=== PATIENT | male | born 1930 | race Caucasian/White ===

== ENCOUNTER 2016-12-16 10:47 | Observation (INO) | payer OTHER ==
--- NOTE | ~2016-12-16 | HP ---
History And Physical [address] [place]. [address] NAME: DOUGIE CONWAY : 32 STATUS : ADM IN [facility]#: [id number] AGE: 86 ADM/REG DATE : 12/16/16 MR#: [id number] REPORT SERV DATE: 12/17/16 DICTATED BY: CLYDE CASTAÑEDA DATE: 12/17/16 REPORT STATUS : Draft TRANSCRIBED BY: MODL DATE: 12/17/16 DATE OF ADMISSION: 12/16/2016 CHIEF COMPLAINT: Hepatocellular carcinoma. HISTORY OF PRESENT ILLNESS: Mr. Conway is an 86-year-old white gentleman with past medical history of hepatocellular carcinoma, coronary artery disease, CHF, and chronic kidney disease, who was recently seen by Dr. Boyle for his hepatocellular carcinoma. There was signs of worsening disease and was scheduled for radiofrequency ablation and chemoembolization. He was admitted on 12/16/2016 for his procedures. The RFA was performed on the 12/16/2016 without complication. On the morning of the 12/17/2016, he was scheduled for the chemoembolization, but he ate breakfast delaying the procedure. He is currently waiting for his chemoembolization later today. He tolerated the RFA well. He has had some tenderness in the right upper quadrant, but this has been well controlled with his Dilaudid [employer]. He has also had some nausea without vomiting. He denies any fevers or bleeding. He has history of chronic kidney disease, but his urine output has been normal. He has heart disease including coronary artery disease and congestive heart failure, but denies shortness of breath or chest pain. His only other complaint at this time has been insomnia and wants something to help him sleep. PAST MEDICAL HISTORY: 1. Coronary artery disease. 2. Congestive heart failure. 3. Chronic kidney disease. 4. Hepatocellular carcinoma. 5. GERD with Rashid esophagus. 6. Peripheral vascular disease with AAA. 7. Atrial fibrillation. MEDICATIONS: 1. Entresto. 2. Iron. 3. Coreg. 4. Bumex. 5. Lipitor. 6. Carafate. 7. Protonix. 8. Zanaflex. 9. Aspirin. FAMILY HISTORY: Noted for diabetes and hypertension. SOCIAL HISTORY: He is . Denies smoking, alcohol, or illicit drugs. ALLERGIES: NO KNOWN DRUG ALLERGIES. History And Physical [address] [place]. [address] NAME: DOUGIE CONWAY : 32 STATUS : ADM IN [facility]#: [id number] AGE: 86 ADM/REG DATE : 12/16/16 MR#: [id number] REPORT SERV DATE: 12/17/16 DICTATED BY: CLYDE CASTAÑEDA DATE: 12/17/16 REPORT STATUS : Draft TRANSCRIBED BY: MODL DATE: 12/17/16 REVIEW OF SYSTEMS: A comprehensive review of systems in 12 or more systems was performed and was negative, except for previously mentioned in the HPI. PHYSICAL EXAMINATION: VITAL SIGNS: Temperature 97.8, pulse 75, respirations 20, blood pressure 134/61, and pulse oximetry 94%. GENERAL: Elderly well-developed, well-nourished white gentleman, looking younger than stated age, in no acute distress. HEENT: Pupils equal, round, and reactive to light. Extraocular movements are intact. Conjunctivae and lids normal. Sclerae anicteric. Moist mucous membranes. Tongue and oropharynx normal without exudate, masses, mucositis, or thrush. NECK: Supple. No JVD. Trachea midline. LYMPHATICS: No cervical, supraclavicular, or axillary lymphadenopathy. Normal respiratory effort. Clear to auscultation bilaterally and anteriorly. CARDIOVASCULAR: Regular rate and rhythm. No murmurs, rubs, or gallops. ABDOMEN: Soft, minimally tender in the right upper quadrant, nondistended. Positive bowel sounds. Bandage in the right upper quadrant from his prior RFA. No appreciable hepatosplenomegaly. EXTREMITIES: No clubbing, cyanosis, or edema. NEUROLOGIC: No focal deficits. Awake, alert, and oriented. Appropriate mood and insight. Verbalized understanding of our conversation. SKIN: No rashes or ecchymoses visualized. No palpable nodules. LABORATORY DATA: CMP showed BUN 34, creatinine 1.49, total bilirubin 1.4, AST 45, ALT 23. CBC: White blood cell count 3.9, hemoglobin 8.3 g/dL, hematocrit 26.3%, platelets 137,000. PT of 14.6 and INR of 1.2. ASSESSMENT AND PLAN: Mr. Dougie Conway is an 86-year-old white gentleman with hepatocellular carcinoma, admitted for local treatment to the liver. 1. Hepatocellular carcinoma. Mr. Conway had a RFA performed yesterday for his hepatocellular carcinoma. Discussed for chemo embolization this a.m., but was delayed to this evening due to eating breakfast. We will check a CMP in the morning. 2. Leukopenia/thrombocytopenia: Related to liver disease. No bleeding at this time. I will check a CBC in the a.m. 3. Coronary artery disease/congestive heart failure: We will continue cardiac medications, except for his aspirin, which was held for his procedures. 4. Chronic kidney disease: Creatinine was at baseline at 1.49. We will need to monitor with the contrast for the chemoembolization. Check CMP in the a.m. 5. Anemia secondary to chronic kidney disease. The patient was given Aranesp on the 12/16/2016. CBC in the morning. 6. Nausea. We will give Zofran q.8h. p.r.n. 7. Insomnia: We will give trazodone 50 mg p.o. q.h.s. p.r.n. 8. Prophylaxis. We will give PPI. No low-molecular weight heparin with expected procedures. History And Physical [address] [address] NAME: DOUGIE CONWAY : 32 STATUS : ADM IN [facility]#: [id number] AGE: 86 ADM/REG DATE : 12/16/16 MR#: [id number] REPORT SERV DATE: 12/17/16 DICTATED BY: CLYDE CASTAÑEDA DATE: 12/17/16 REPORT STATUS : Draft TRANSCRIBED BY: SHORTY DATE: 12/17/16 AMY/SHORTY Clyde Castañeda MD / [id number] CC: Zamzam Broussard III, NATHAN
[~2016-12-16 10:47] MED LIST: *UNABLE1; ALTA2.5 PO; ALTA5 PO; ALTACE PO; APRES10B PO; ASAB PO; BETAPACE80 PO; BUM1 PO; COREG12 PO; COREG25 PO; COREG6 PO; DEMA20 PO; ELIQUIS 5 MG TAB5 MG PO; ELIQUIS PO; FESO4 PO; GLUCPH PO; INSPRA25 PO; JANUVIA; JANUVIA50 PO; K-TABS10 MEQ PO; L20 PO; LIPITOR10 PO; LIPITOR40 PO; NEXAVAR200 PO; PLAVIX PO; PROSCAR5 PO; PROTONIX PO; RAPAFLO PO; RAPAFLO8 MG PO; SACU1TAB PO; SUCR PO; T PO; TRADJENTA5 MG PO; ULTRAM50 PO; ZANAFLEX 4 MG TA4 MG PO
[2016-12-16 11:35] LABS: BASOPHILS 0.8 %; BASOPHILS ABSOLUTE 0.03 10/3/uL (0.0-0.16); EOSINOPHILS 2.1 %; EOSINOPHILS ABSOLUTE 0.08 10/3/uL (0.0-0.53); HEMATOCRIT 26.3 % (40.0-51.0); HEMOGLOBIN 8.3 g/dL (13.6-17.8); IMMATURE GRANULOCYTES 0.3 %; IMMATURE GRANULOCYTES ABSOLUTE 0.01 10/3/uL (0.0-0.11); LYMPHOCYTES 20.2 %; LYMPHOCYTES ABSOLUTE 0.78 10/3/uL (0.67-4.30); MEAN CORPUS HGB CONC 31.6 g/dL (32.0-36.0); MEAN CORPUSCULAR HEMOGLOB 32.5 pg (26.0-34.0); MEAN PLATELET VOLUME 11.4 fL (9.2-13.0); MONOCYTES 9.6 %; MONOCYTES ABSOLUTE 0.37 10/3/uL (0.21-1.20); RED CELL COUNT 2.55 10/6/uL (4.7-6.1); WHITE BLOOD CELLS 3.9 10/3/uL (4.5-10.5)
[2016-12-16 11:36] LABS: INTERNATIONAL NORMAL RATI 1.2 UNITS (-); PARTIAL THROMBO TIME 30.2 SEC (22.5-37.2); PROTIME (NOT ORD) 14.6 SEC (12.0-14.5)
[2016-12-16 11:38] LABS: MANUAL DIFF NO %; MEAN CORPUSCULAR VOLUME 103.1 fL (80-100); PLATELET COUNT 137 10/3/uL (150-400)
[2016-12-16 15:19] LABS: A/G RATIO 0.4 (0.7-1.9); ALBUMIN 2.4 G/DL (3.5-5.0); ALKALINE PHOSPHATASE 129 U/L (45-117); BUN (BLOOD UREA NITROGEN) 34 MG/DL (6-23); CALCIUM, SERUM 8.3 MG/DL (8.5-10.4); CHLORIDE, SERUM 107 MMOL/L (96-112); CO2 (CARBON DIOXIDE) 23 MMOL/L (24-34); CREATININE 1.49 MG/DL (0.70-1.30); GFR AFRICAN AMERICAN 49 ML/MIN (>=60); GFR NON AFRICAN AMERICAN 42 ML/MIN (>=60); GLOBULIN 5.5 G/DL (2.5-4.1); GLUCOSE, SERUM 113 MG/DL (60-99); POTASSIUM, SERUM 4.1 MMOL/L (3.5-5.3); SGOT(AST) 45 U/L (5-40); SGPT(ALT) 23 U/L (5-65); SODIUM, SERUM 139 MMOL/L (135-148); TOTAL BILIRUBIN 1.4 MG/DL (0-1.2); TOTAL PROTEIN 7.9 G/DL (6.0-8.5)
[2016-12-18 07:09] LABS: BASOPHILS 0.2 %; BASOPHILS ABSOLUTE 0.01 10/3/uL (0.0-0.16); EOSINOPHILS 0.6 %; EOSINOPHILS ABSOLUTE 0.03 10/3/uL (0.0-0.53); HEMOGLOBIN 7.4 g/dL (13.6-17.8); IMMATURE GRANULOCYTES 0.2 %; IMMATURE GRANULOCYTES ABSOLUTE 0.01 10/3/uL (0.0-0.11); LYMPHOCYTES 10.9 %; LYMPHOCYTES ABSOLUTE 0.52 10/3/uL (0.67-4.30); MEAN CORPUS HGB CONC 31.4 g/dL (32.0-36.0); MEAN CORPUSCULAR HEMOGLOB 31.8 pg (26.0-34.0); MEAN CORPUSCULAR VOLUME 101.3 fL (80-100); MEAN PLATELET VOLUME 10.6 fL (9.2-13.0); MONOCYTES 10.1 %; MONOCYTES ABSOLUTE 0.48 10/3/uL (0.21-1.20); PLATELET COUNT 127 10/3/uL (150-400); RBC DISTRIBUTION WIDTH 20.1 % (12.0-16.0); RED CELL COUNT 2.33 10/6/uL (4.7-6.1); WHITE BLOOD CELLS 4.8 10/3/uL (4.5-10.5)
[2016-12-18 07:13] LABS: HEMATOCRIT 23.6 % (40.0-51.0)
[2016-12-18 07:14] LABS: MANUAL DIFF NO %
[2016-12-18 07:17] LABS: A/G RATIO 0.4 (0.7-1.9); ALBUMIN 2.5 G/DL (3.5-5.0); ALKALINE PHOSPHATASE 136 U/L (45-117); BUN (BLOOD UREA NITROGEN) 41 MG/DL (6-23); CALCIUM, SERUM 8.4 MG/DL (8.5-10.4); CHLORIDE, SERUM 104 MMOL/L (96-112); CO2 (CARBON DIOXIDE) 24 MMOL/L (24-34); CREATININE 1.99 MG/DL (0.70-1.30); DIRECT BILIRUBIN 0.1 MG/DL (0.0-0.4); GFR AFRICAN AMERICAN 34 ML/MIN (>=60); GFR NON AFRICAN AMERICAN 30 ML/MIN (>=60); GLOBULIN 5.7 G/DL (2.5-4.1); GLUCOSE, SERUM 113 MG/DL (60-99); INDIRECT BILIRUBIN(NOT ORDER) 0.3 MG/DL (0.1-0.9); POTASSIUM, SERUM 4.2 MMOL/L (3.5-5.3); SGOT(AST) 111 U/L (5-40); SGPT(ALT) 40 U/L (5-65); SODIUM, SERUM 138 MMOL/L (135-148); TOTAL BILIRUBIN 0.4 MG/DL (0-1.2); TOTAL PROTEIN 8.2 G/DL (6.0-8.5)
[2016-12-18] MEDS ORDERED: NORCO1 TA1 PO (10:03)
[2017-02-08] MEDS ORDERED: SUCR PO (16:21)
[2017-02-08] MEDS ORDERED: COREG12 PO (16:21)
[2017-02-08] MEDS ORDERED: SACU1TAB PO (16:22)
[2017-02-08] MEDS ORDERED: PROTONIX PO (16:22)
[2017-02-08] MEDS ORDERED: BUM1 PO (16:23)
[2017-02-08] MEDS ORDERED: ACET500CAP PO (16:24)
[2017-02-08] MEDS ORDERED: NORCO1 TA1 PO (16:24)
[2017-02-08] MEDS ORDERED: FERROUS SULF325 M1 PO (16:25)
[2017-02-08] MEDS ORDERED: TYLENOL PM PO (16:25)
[2017-02-08] MEDS ORDERED: ASAB PO (16:25)
[2017-02-08] MEDS ORDERED: STOOL SOFTENER PO (16:28)
== END 2016-12-18 13:43 | disposition home or self-care (01) ==
LOC: M.OR 10:47 → RADHOLD 10:52 → M.OR 17:23 → 7NO 17:24
PROVIDERS: Internal Medicine; Internal Medicine Hematology & Oncology; Radiology Diagnostic Radiology
DX: C22.0 Liver cell carcinoma (principal); I25.10 Atherosclerotic heart disease of native coronary artery without angina pectoris; I71.4 Abdominal aortic aneurysm, without rupture; I50.9 Heart failure, unspecified; I25.2 Old myocardial infarction; I49.3 Ventricular premature depolarization; I48.91 Unspecified atrial fibrillation; N18.9 Chronic kidney disease, unspecified; K21.9 Gastro-esophageal reflux disease without esophagitis; K22.70 Barrett's esophagus without dysplasia; G47.30 Sleep apnea, unspecified; M19.90 Unspecified osteoarthritis, unspecified site; N42.9 Disorder of prostate, unspecified; D64.9 Anemia, unspecified; D72.819 Decreased white blood cell count, unspecified; D69.6 Thrombocytopenia, unspecified; D63.1 Anemia in chronic kidney disease; H91.90 Unspecified hearing loss, unspecified ear; Z82.49 Family history of ischemic heart disease and other diseases of the circulatory system; Z83.3 Family history of diabetes mellitus; Z87.01 Personal history of pneumonia (recurrent); Z95.0 Presence of cardiac pacemaker; Z95.5 Presence of coronary angioplasty implant and graft; Z87.891 Personal history of nicotine dependence; Z96.652 Presence of left artificial knee joint; Z96.641 Presence of right artificial hip joint; Z96.1 Presence of intraocular lens; Z98.41 Cataract extraction status, right eye; Z98.42 Cataract extraction status, left eye; Z90.89 Acquired absence of other organs; Z79.82 Long term (current) use of aspirin; Z79.899 Other long term (current) drug therapy; Z98.890 Other specified postprocedural states
CPT/HCPCS: 36247; 36248; 37243; 47382; 74150; 77013; 80053; 82248; 85025; 85610; 85730; 93005; 96374; 96376; 96420; A9270-GY; C1757; C1769; C1887; C1894; G0378; J1170; J1956; J2250; J2405; J2710; J3010; J9000; Q9967

== ENCOUNTER 2017-02-08 16:29 | Emergency (ER) | payer OTHER ==
[2017-02-08 13:02] LABS: BASOPHILS 0.9 %; BASOPHILS ABSOLUTE 0.03 10/3/uL (0.0-0.16); EOSINOPHILS 2.9 %; ER CBC TAT 0 Hrs 08 Mins; HEMATOCRIT 25.3 % (40.0-51.0); LYMPHOCYTES 16.5 %; LYMPHOCYTES ABSOLUTE 0.57 10/3/uL (0.67-4.30); MANUAL DIFF NO %; MEAN CORPUS HGB CONC 31.6 g/dL (32.0-36.0); MEAN CORPUSCULAR HEMOGLOB 30.5 pg (26.0-34.0); MEAN CORPUSCULAR VOLUME 96.6 fL (80-100); MEAN PLATELET VOLUME 11.2 fL (9.2-13.0); MONOCYTES 8.1 %; MONOCYTES ABSOLUTE 0.28 10/3/uL (0.21-1.20); NEUTROPHILS 71.6 %; NEUTROPHILS ABSOLUTE 2.48 10/3/uL (2.02-8.40); PLATELET COUNT 102 10/3/uL (150-400); RBC DISTRIBUTION WIDTH 20.1 % (12.0-16.0); RED CELL COUNT 2.62 10/6/uL (4.7-6.1); WHITE BLOOD CELLS 3.5 10/3/uL (4.5-10.5)
[2017-02-08 13:12] LABS: INTERNATIONAL NORMAL RATI 1.2 UNITS (-); PARTIAL THROMBO TIME 36.9 SEC (22.5-37.2); PROTIME (NOT ORD) 15.1 SEC (12.0-14.5)
[2017-02-08 13:21] LABS: BUN (BLOOD UREA NITROGEN) 39 MG/DL (6-23); CALCIUM, SERUM 8.5 MG/DL (8.5-10.4); CHEST PAIN PROFILE TAT 0 Hrs 27 Mins; CHLORIDE, SERUM 109 MMOL/L (96-112); CO2 (CARBON DIOXIDE) 24 MMOL/L (24-34); CREATININE 1.77 MG/DL (0.70-1.30); GFR AFRICAN AMERICAN 40 ML/MIN (>=60); GFR NON AFRICAN AMERICAN 34 ML/MIN (>=60); POTASSIUM, SERUM 4.1 MMOL/L (3.5-5.3); SODIUM, SERUM 140 MMOL/L (135-148); TROPONIN I 0.02 NG/ML (<0.05)
[2017-02-08 13:22] LABS: GLUCOSE, SERUM 140 MG/DL (60-99)
[~2017-02-08 16:29] MED LIST changes: +ACET500CAP PO; +FERROUS SULF325 M1 PO; +NORCO1 TA1 PO; +STOOL SOFTENER PO; +TYLENOL PM PO
[2017-02-08 16:56] LABS: A/G RATIO 0.4 (0.7-1.9); ALBUMIN 2.3 G/DL (3.5-5.0); ALKALINE PHOSPHATASE 124 U/L (45-117); GLOBULIN 5.9 G/DL (2.5-4.1); SGOT(AST) 55 U/L (5-40); SGPT(ALT) 16 U/L (5-65); TOTAL BILIRUBIN 0.4 MG/DL (0-1.2); TOTAL PROTEIN 8.2 G/DL (6.0-8.5)
== END 2017-02-08 18:20 | disposition home or self-care (01) ==
LOC: ER 16:29
PROVIDERS: Hospitalist
DX: I50.9 Heart failure, unspecified (principal); C22.8 Malignant neoplasm of liver, primary, unspecified as to type; K74.60 Unspecified cirrhosis of liver; D64.9 Anemia, unspecified; Z95.0 Presence of cardiac pacemaker; Z91.11 Patient's noncompliance with dietary regimen; Z79.82 Long term (current) use of aspirin; Z79.899 Other long term (current) drug therapy
CPT/HCPCS: 71020; 80048; 80053; 83735; 83880; 84484; 85025; 85610; 85730; 93005; 96374; 99285